=== PATIENT | female | born 1945 | race Caucasian/White ===

== ENCOUNTER 2016-05-15 11:01 | Emergency (ER) | payer MEDICARE, OTHER ==
[2016-05-15 11:08] VITALS: RESP 16; TEMP 98.4
--- NOTE | 2016-05-15 13:44 | DX ---
AP pelvis Reason for examination: Pain following trauma. 70-year-old female fell recently. Findings: A fracture is not identified. The bone alignment is normal. The soft tissues are unremarkab le. Impression: Negative for fracture.
--- NOTE | 2016-05-15 13:44 | DX ---
Lumbar Spine, 2 views History: Back pain; history of recent fall in a 70-year-old female, comparison to the prior study Dec ember 2014. Findings: Lumbar alignment is anatomic. No fracture is identified. Stable degenerative changes are no gareth with disk space loss at L2-L3 and L3-L4. Facet hypertrophy extends from L3-L4 to the L5-S1 level. IMPRESSION: Negative for fracture with stable degenerative changes noted.
--- NOTE | 2016-05-15 14:07 | EDPHY ---
HPI/HX/ROS/PE/MDM Narrative: Chief complaint: Low back pain status post fall HPI: 70-year-old female states she had a mechanical slip and fall on her steps yesterday. Feet went out from under her and she landed on her back at approximately 2 steps. Striking the left lower back on the step. She did not hit her head. No loss of consciousness. He knows to shortness of breath. No chest pain. No abdominal pain. Does have some pain over her left posterior iliac bone. He lower extremity pain. She has been ambulating with some mild discomfort. No urinary symptoms. No hematuria. She has been taking some ibuprofen with minimal relief. ROS: 10 point Review of Systems is negative except as noted in the HPI. Physical exam: Gen: Awake, Alert, No Distress HEENT: Nose: no rhinorrhea Eyes: PERRLA, EOMI Mouth: Moist mucosa Neck: Supple, no JVD Chest: nontender, lungs clear to auscultation Heart: S1, S2 normal, no murmur Abd: Soft, non-tender, no guarding Back: no CVA tenderness, no midline tenderness, she has tenderness in the left paraspinal area just above the left iliac crest and at the left iliac crest. There is no bony crepitus. There is no ecchymosis Ext: no edema, non-tender, full range of motion bilateral upper lower extremities without pain Skin: no rash Neuro: CN II-XII intact, Sensation grossly intact, Strength 5/5 in bilateral upper and lower extremities ED Course: Lumbar spine x-ray shows no acute fractures per Radiology. Pelvis x-ray shows no acute fracture per radiologist. General Time Seen by Provider: 05/15/16 12:37 Initial Vital Signs: Initial Vital Signs Temperature (C) 36.9 C 05/15/16 11:05 Heart Rate 72 05/15/16 11:05 Respiratory Rate 16 05/15/16 11:05 Blood Pressure 143/79 H 05/15/16 11:05 O2 Sat (%) 95 05/15/16 11:05 Allergies/Adverse Reactions: morphine Allergy (Verified 05/15/16 11:09) Home Medications: Medication Instructions Recorded Hydrocodone/Acetaminophen 1 - 2 each PO Q4-6PRN PRN #10 05/15/16 [Hydrocodon-Acetaminophen 5-325] tablet Departure - Departure Disposition: Home, Routine, Self-Care Clinical Impression: Back contusion Condition: Good Instructions: Acute Low Back Pain (ED), Contusion in Adults (ED) Additional Instructions: You may take hydrocodone with acetaminophen as needed for pain. Follow up with your primary care physician in 3-4 days for further evaluation. Return to the emergency department for increasing pain, numbness, weakness, fevers, chills, abdominal pain, shortness of breath, or any other concerns. Referrals: Alysia Sexton MD [Primary Care Provider] - As per Instructions Prescriptions: Hydrocodone/Acetaminophen [Hydrocodon-Acetaminophen 5-325] 1 - 2 each PO Q4- 6PRN PRN #10 tablet PRN Reason: Pain, Severe
[2016-05-15 14:28] VITALS: BP 139/72; PULSE 70; O2SAT 96
== END 2016-05-15 14:28 | disposition home or self-care (01) ==
DX: S30.0XXA Contusion of lower back and pelvis, initial encounter (principal); W01.0XXA Fall on same level from slipping, tripping and stumbling without subsequent striking against object, initial encounter

== ENCOUNTER → 2017-04-10 | Outpatient (CLI) | payer OTHER | LOC: FIMAGING 11:22 | PROVIDERS: ATTEND Family Medicine | DX: Z13.820 Encounter for screening for osteoporosis (principal); M85.89 Other specified disorders of bone density and structure, multiple sites ==

== ENCOUNTER → 2017-09-22 | Outpatient (CLI) | payer OTHER | LOC: FIMAGING 11:43 | PROVIDERS: ATTEND Family Medicine | DX: Z12.31 Encounter for screening mammogram for malignant neoplasm of breast (principal) ==

== ENCOUNTER → 2017-10-01 | Outpatient (CLI) | payer OTHER | LOC: FIMAGING 09:08 | PROVIDERS: ATTEND Physician Assistant | DX: N60.01 Solitary cyst of right breast (principal) ==

== ENCOUNTER → 2018-04-29 | Outpatient (CLI) | payer OTHER ==
[~2018-04-29] MED LIST: IOPAMIDOL (ISOVUE 370) 100 ML BTL IV ONE
== END | disposition home or self-care (01) ==
LOC: FIMAGING 09:57
PROVIDERS: ATTEND Registered Nurse
DX: R93.3 Abnormal findings on diagnostic imaging of other parts of digestive tract (principal); K59.09 Other constipation; N81.10 Cystocele, unspecified
CPT/HCPCS: 74177; Q9967; 82565-PO

== ENCOUNTER → 2018-09-25 | Outpatient (CLI) | payer OTHER | LOC: FIMAGING 14:22 ==